=== PATIENT | male | born 1980 | race African-American/Black ===

== ENCOUNTER 2020-01-26 12:54 | Emergency (ER) | payer OTHER ==
[~2020-01-26] VITALS: Ht 195.6 cm; Wt 230.0 kg
[2020-01-26] MEDS ORDERED: IBUPROFEN 800MG TABLET PO NR (13:51)
[2020-01-26] MEDS ORDERED: ACETAMINOPHEN 500MG TABLET PO NR (13:51)
[2020-01-26] MEDS ORDERED: ACETAMINOPHEN WITH CODEINE 300/30MG TABLET PO NR (14:45)
[2020-01-26 16:39] VITALS: BP 168/69
== END 2020-01-26 16:41 | disposition home or self-care (01) ==
LOC: ER 13:12
DX: S82.302A Unspecified fracture of lower end of left tibia, initial encounter for closed fracture (principal); Y93.51 Activity, roller skating (inline) and skateboarding; Y93.9 Activity, unspecified; Y92.89 Other specified places as the place of occurrence of the external cause; Y99.8 Other external cause status
CPT/HCPCS: 29515; 73610; 73620; 99284